=== PATIENT | male | born 1950 | race African-American/Black ===

== ENCOUNTER → 2018-07-04 | Emergency (ER) | payer MEDICARE, BC ==
[~2018-07-04] MED LIST: ASPIRIN 81 MG TABLET, CHEWABLE PO ONE; POTASSIUM CHLORIDE 10 MEQ CAPSULE.ER PO ONE
[2018-07-04 18:40] VITALS: BP 145/69
--- NOTE | 2018-07-04 19:02 | ER Document Report ---
ED Medical Screen (RME) - General Chief Complaint: Chest Pain Stated Complaint: CHEST PAIN Time Seen by Provider: 07/04/18 18:59 Notes: 67 years old male with a history of high blood pressure, presents today with palpitation on and off for the last several days particularly at nighttime. Associated with the right-sided chest pain. Denies any left arm numbness tingling sensation nausea vomiting or diaphoresis with it. No constitutional symptoms TRAVEL OUTSIDE OF THE [place] IN LAST 30 DAYS: No - Related Data Allergies/Adverse Reactions: No Known Allergies Allergy (Unverified 12/25/13 12:54) Past Medical History - Social History Chew tobacco use (# tins/day): No Frequency of alcohol use: None Drug Abuse: None - Past Medical History Cardiac Medical History: Reports: Hx Hypertension Denies: Hx Heart Attack Pulmonary Medical History: Denies: Hx Asthma Neurological Medical History: Denies: Hx Cerebrovascular Accident, Hx Seizures Renal/ Medical History: Denies: Hx Peritoneal Dialysis GI Medical History: Denies: Hx Hepatitis, Hx Hiatal Hernia, Hx Ulcer Infectious Medical History: Denies: Hx Hepatitis Past Surgical History: Denies: Hx Open Heart Surgery, Hx Pacemaker Physical Exam - Vital signs Vitals: Temp Pulse Resp BP Pulse Ox 98.3 F 96 18 145/69 H 96 07/04/18 18:39 07/04/18 18:39 07/04/18 18:39 07/04/18 18:39 07/04/18 18:39 Course - Vital Signs Vital signs: Temp Pulse Resp BP Pulse Ox 98.3 F 96 18 145/69 H 96 07/04/18 18:39 07/04/18 18:39 07/04/18 18:39 07/04/18 18:39 07/04/18 18:39 Doctor's Discharge - Discharge Referrals: LAURA ANN MD [Primary Care Provider] - Follow up as needed
--- NOTE | 2018-07-04 19:30 | RADIOLOGY REPORT (SQ) ---
EXAM DESCRIPTION: CHEST SINGLE VIEW COMPLETED DATE/TIME: 07/04/2018 7:16 pm REASON FOR STUDY: chest pain COMPARISON: 09/14/2008 EXAM PARAMETERS: NUMBER OF VIEWS: One view. TECHNIQUE: Single frontal radiographic view of the chest acquired. RADIATION DOSE: NA LIMITATIONS: None. FINDINGS: LUNGS AND PLEURA: No opacities, masses or pneumothorax. No pleural effusion. MEDIASTINUM AND HILAR STRUCTURES: No masses. Contour normal. HEART AND VASCULAR STRUCTURES: Heart normal in size. Normal vasculature. BONES: No acute findings. HARDWARE: None in the chest. OTHER: None IMPRESSION: NO ACUTE RADIOGRAPHIC FINDING IN THE CHEST. TECHNICAL DOCUMENTATION: JOB ID: [id number] [employer]- All Rights Reserved Reading location - IP/workstation name: [email or web address]
[2018-07-04 19:52] LABS: ABSOLUTE BASOPHILS # (AUTO) 0.1 10^3/uL (0.0-0.2); ABSOLUTE EOSINOPHILS # (AUTO) 0.1 10^3/uL (0.0-0.6); ABSOLUTE LYMPHOCYTES (AUTO) 1.6 10^3/uL (0.5-4.7); ABSOLUTE MONOCYTES (AUTO) 0.5 10^3/uL (0.1-1.4); BASOPHILS % (AUTO) 1.2 % (0-2); EOSINOPHILS % (AUTO) 1.7 % (0-6); HEMATOCRIT 38.2 % (37.9-51.0); HEMOGLOBIN 12.6 g/dL (13.5-17.0); LYMPHOCYTES % (AUTO) 21.7 % (13-45); MEAN CORPUSCULAR HGB CONC 33.1 g/dL (32.0-36.0); MEAN CORPUSCULAR VOLUME 85 fl (80-97); MONOCYTES % (AUTO) 6.9 % (3-13); PLATELET COUNT 210 10^3/uL (150-450); RED BLOOD COUNT 4.51 10^6/uL (4.35-5.55); RED CELL DISTRIBUTION WIDTH 14.4 % (11.5-14.0); SEGMENTED NEUTROPHILS % (AUTO) 68.5 % (42-78); TOTAL CELLS COUNTED % (AUTO) 100 %; WHITE BLOOD COUNT 7.3 10^3/uL (4.0-10.5)
[2018-07-04 20:12] LABS: ALANINE AMINOTRANSFERASE 29 U/L (21-72); ALBUMIN 4.7 g/dL (3.5-5.0); ALKALINE PHOSPHATASE 117 U/L (38-126); ANION GAP 15 (5-19); ASPARTATE AMINO TRANSFERASE 29 U/L (17-59); BILIRUBIN,DIRECT 0.2 mg/dL (0.0-0.4); BILIRUBIN,TOTAL 0.4 mg/dL (0.2-1.3); BLOOD UREA NITROGEN 38 mg/dL (7-20); CALCIUM 10.5 mg/dL (8.4-10.2); CARBON DIOXIDE 26 mmol/L (22-30); CHLORIDE 103 mmol/L (98-107); CREATINE KINASE 157 U/L (55-170); GLUCOSE 181 mg/dL (75-110); POTASSIUM 3.5 mmol/L (3.6-5.0); SODIUM 144.3 mmol/L (137-145); TOTAL PROTEIN 7.8 g/dL (6.3-8.2)
[2018-07-04 20:22] LABS: CREATINE KINASE MB 0.99 ng/mL (<4.55)
[2018-07-04 20:23] LABS: TROPONIN I < 0.012 ng/mL
--- NOTE | 2018-07-04 22:28 | EKG REPORT ---
SEVERITY:- ABNORMAL ECG - SINUS TACHYCARDIA MULTIFORM VENTRICULAR PREMATURE COMPLEXES : Confirmed by: Nayeli Krishnan MD 04-Jul-2018 22:27:32
== END | disposition left against medical advice (07) ==
LOC: ER 17:56
DX: R07.9 Chest pain, unspecified (principal); I10 Essential (primary) hypertension; R00.2 Palpitations
CPT/HCPCS: 93005; 99281; 36415; 82553; 82550; 85025; 80053; 84484; 71045; 93010; A9270

== ENCOUNTER → 2019-01-19 | Outpatient (CLI) | payer MEDICARE, BC ==
--- NOTE | 2019-01-19 10:32 | RADIOLOGY REPORT (SQ) ---
EXAM DESCRIPTION: CHEST 2 VIEWS COMPLETED DATE/TIME: 01/19/2019 10:17 am REASON FOR STUDY: Z01.818 ENCOUNTER FOR OTHER PREPROCEDURAL EXAMINATION COMPARISON: Chest films 07/04/2018, 09/04/2008 EXAM PARAMETERS: NUMBER OF VIEWS: two views TECHNIQUE: Digital Frontal and Lateral radiographic views of the chest acquired. RADIATION DOSE: NA LIMITATIONS: none FINDINGS: LUNGS AND PLEURA: Chronic scarring in the lingula and right lateral costophrenic sulcus. No fluffy alveolar infiltrates worrisome for edema or pneumonia. No pleural effusion. No pneumothor ax. MEDIASTINUM AND HILAR STRUCTURES: No masses or contour abnormalities. HEART AND VASCULAR STRUCTURES: Heart normal size. No evidence for failure. BONES: No acute findings. HARDWARE: None in the chest. OTHER: No other significant finding. IMPRESSION: Scarring in the lingula and right lateral lung base. No acute findings TECHNICAL DOCUMENTATION: JOB ID: [id number] [employer]- All Rights Reserved Reading location - IP/workstation name: [email or web address]
== END ==
LOC: RAD 09:48
PROVIDERS: ATTEND Internal Medicine Geriatric Medicine
DX: Z01.818 Encounter for other preprocedural examination (principal)
CPT/HCPCS: 71046

== ENCOUNTER 2019-05-17 06:41 | Day surgery (SDC) | payer MEDICARE, BC ==
[~2019-05-17 06:41] MED LIST changes: +AMPICILLIN SOD INJ 2 GM VIAL ONE; +AMPICILLIN SODIUM 2 GM in NORMAL SALINE 100 ML IV PRN; -ASPIRIN 81 MG TABLET, CHEWABLE PO ONE; -POTASSIUM CHLORIDE 10 MEQ CAPSULE.ER PO ONE
[2019-05-17] MEDS ORDERED: FENTANYL CITRATE INJ/PF 100 MCG/2 ML AMPUL ONE (09:08)
[2019-05-17] MEDS ORDERED: MIDAZOLAM 2 MG/2 ML INJ ONE (09:08)
[2019-05-17] MEDS ORDERED: OXYMETAZOLINE HCL 0.05% NASAL SPRAY 15 ML BOTTLE ONE (09:09)
[2019-05-17] MEDS ORDERED: PROPOFOL INJ 200 MG/20 ML VIAL IV ONE (09:09)
[2019-05-17] MEDS ORDERED: DIPHENHYDRAMINE HCL 50 MG/ML VIAL IV PRN (10:01)
[2019-05-17] MEDS ORDERED: PROMETHAZINE HCL INJ 25 MG/1 ML VIAL IV PRN ×2 (10:01)
[2019-05-17] MEDS ORDERED: OXYCODONE-ACETAMINOPHEN 5-325 MG TABLET PO PRN ×2 (10:01)
[2019-05-17] MEDS ORDERED: MORPHINE SULFATE 10 MG/ML INJ IV PRN (10:01)
[2019-05-17] MEDS ORDERED: FENTANYL CITRATE INJ/PF 100 MCG/2 ML AMPUL IV PRN ×3 (10:01)
[2019-05-17] MEDS ORDERED: MEPERIDINE HCL/PF INJ 25 MG/1 ML DISP.SYRIN IV PRN (10:01)
[2019-05-17] MEDS ORDERED: SUGAMMADEX SODIUM 200 MG/2 ML SDV IV ONE (10:08)
[2019-05-17] MEDS ORDERED: HYDROCOD/ACETAMIN 7.5-325 MG/15 ML ORAL SOLN UDCUP PO PRN (10:59)
[2019-05-17] MEDS ORDERED: ONDANSETRON HCL INJ/PF 4 MG/2 ML SDV IV PRN (11:00)
--- NOTE | 2019-05-17 11:24 | OPERATIVE REPORT E ---
Operative Report NAME: KEVIN DIXON SR : 1950 AGE: 68Y DATE OF SURGERY: 05/17/2019 ROOM: HISTORY: A 68-year-old male with a nasopharyngeal mass, presents today for a biopsy of the nasopharyngeal mass. Informed consent was obtained from the patient. PREOPERATIVE DIAGNOSIS: NASOPHARYNGEAL MASS. POSTOPERATIVE DIAGNOSIS: NASOPHARYNGEAL MASS. OPERATION: Biopsy of the nasopharyngeal mass. SURGEON: PRATEEK PALACIO MD ANESTHESIA: General via endotracheal intubation. DESCRIPTION OF PROCEDURE: After receiving informed consent from the patient, he was taken to the operating room and placed supine on the operating room table. After successful induction intubation by anesthesia, patient then turned 90 degrees and placed in Trendelenburg. Shoulder roll place, head rest place, and McIvor mouth gag inserted atraumatically into the oral cavity. This was then opened up. Soft palate was palpated and found to be normal. Red catheters were inserted down each nasal cavity and brought out to elevate the soft palate. Next, the nasopharynx was visualized. The mass was noted to be laterally in the nasopharynx. It appeared to be consistent with residual lymphoid tissue/adenoid tissue. Next, using the PEAK system, the nasopharyngeal mass was removed. It should be noted that a tissue trap was placed to catch all of the tissue. Hemostasis was obtained using the same system. Next, the nasopharynx along with the oral cavity and oropharynx were irrigated with copious amounts of normal saline. No bleeding was noted. An orogastric tube inserted into the stomach and gastric contents were aspirated. The McIvor mouth gag was then let down and reopened. No bleeding was noted. This along with the red catheters were removed from the patient. The patient was given back to Anesthesia who successfully extubated the patient without any complications. The estimated blood loss is 10 mL. Fluids were 400 mL of crystalloid. The patient was then transferred to the Post Anesthesia Care Unit in stable condition with spontaneous respirations and no complications. DICTATING PHYSICIAN: PRATEEK PALACIO M.D. [id number] PHY#: [id number] ID: [id number] JOB#: [id number] ACCT: [id number] cc:PRATEEK PALACIO MD >
[2019-05-17] MEDS ORDERED: HYDROCOD/ACETAMIN 7.5-325 MG/15 ML ORAL SOLN UDCUP ONE (11:33)
[2019-05-17 11:47] VITALS: BP 110/51
[2019-05-17] MEDS ORDERED: DEXAMETHASONE SOD PHOSPHATE INJ 4 MG/1 ML VIAL ONE (14:13)
[2019-05-17] MEDS ORDERED: GLYCOPYRROLATE 1 MG/5 ML VIAL ONE (14:13)
[2019-05-17] MEDS ORDERED: ONDANSETRON HCL INJ/PF 4 MG/2 ML SDV ONE (14:13)
[2019-05-17] MEDS ORDERED: NEOSTIGMINE METHYLSULFATE 10 MG/10 ML VIAL ONE (14:13)
== END 2019-05-17 11:25 | disposition home or self-care (01) ==
LOC: OROUT 06:41
PROVIDERS: ATTEND Otolaryngology
DX: J39.2 Other diseases of pharynx (principal); E11.9 Type 2 diabetes mellitus without complications; I10 Essential (primary) hypertension; D64.9 Anemia, unspecified; E66.9 Obesity, unspecified; Z68.42 Body mass index [BMI] 45.0-49.9, adult; Z79.899 Other long term (current) drug therapy; Z79.84 Long term (current) use of oral hypoglycemic drugs
CPT/HCPCS: 82962; 88342 ×2; 88341 ×2; 88305 ×2; 00170; 42804; J0290; J2250; J1100; J3010; J2710; J3490 ×2; J2405; J7050; J2704; 170